=== PATIENT | female | born 1995 | race Caucasian/White ===

== ENCOUNTER 2017-12-08 17:54 | Emergency (ER) | payer MEDICAID ==
[2017-12-08] MEDS ORDERED: TETANUS/DIPHTHERIA/PERTUSSIS 0.5 ML SYRINGE IM ONE (19:27)
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
[2017-12-08 19:38] VITALS: BP 122/71
== END 2017-12-08 19:38 | disposition home or self-care (01) ==
LOC: ED 17:54
DX: T24.112A Burn of first degree of left thigh, initial encounter (principal); X10.0XXA Contact with hot drinks, initial encounter; Y92.513 Shop (commercial) as the place of occurrence of the external cause; R03.0 Elevated blood-pressure reading, without diagnosis of hypertension
CPT/HCPCS: 90471; 99282; 99283